=== PATIENT | male | born 2000 | race Caucasian/White ===

== ENCOUNTER 2018-04-14 13:17 | Emergency (ER) | payer OTHER ==
[2018-04-14] MEDS ORDERED: HYDROcod/ACETAM 5/325 MG TABLET PO STA (14:38)
[2018-04-14] MEDS ORDERED: ONDANSETRON ODT 4 MG TABLET TL STA (14:38)
[2018-04-14] MEDS ORDERED: IBUPROFEN 600 MG TABLET PO STA (14:38)
--- NOTE | 2018-04-14 14:40 | ED Physician Documentation ---
PD HPI HEADACHE - Stated complaint Stated Complaint: LEE/ABD PX - Chief complaint Chief Complaint: Neuro - History obtained from History obtained from: Patient - History of Present Illness Timing - onset: Today (17-year-old gentleman who became ill today with stomach upset nausea preceding a gradual onset headache and dizziness. Denies cough. Has had some shortness of breath. Has not vomited, no diarrhea or recent travel. No fevers or chills. No sick contacts.) Review of Systems Constitutional: reports: Fatigue. denies: Fever, Chills Ears: denies: Ear pain, Drainage/discharge Nose: denies: Rhinorrhea / runny nose, Congestion Throat: denies: Sore throat Respiratory: reports: Dyspnea. denies: Cough GI: reports: Nausea. denies: Abdominal Pain, Vomiting, Diarrhea PD PAST MEDICAL HISTORY - Present Medications Home Medications: Ambulatory Orders Medication Instructions Recorded Confirmed Hydrocodone/Acetaminophen 1 - 2 each PO Q6H PRN #7 tablet 04/14/18 [Hydrocodon-Acetaminophen 5-325] Ibuprofen [Motrin] 800 mg PO Q8H PRN #30 tablet 04/14/18 Ondansetron Odt [Zofran] 4 mg TL Q6H PRN #10 tablet 04/14/18 - Allergies Allergies/Adverse Reactions: Allergies Allergy/AdvReac Type Severity Reaction Status Date / Time No Known Drug Allergies Allergy Verified 04/14/18 13:22 PD ED PE NORMAL - Vitals Vital signs reviewed: Yes - General General: Alert and oriented X 3, No acute distress - HEENT HEENT: PERRL, EOMI, Pharynx benign - Neck Neck: Supple, no meningeal sign, No bony TTP - Cardiac Cardiac: RRR, No murmur - Respiratory Respiratory: No respiratory distress, Clear bilaterally - Abdomen Abdomen: Non tender - Derm Derm: No rash - Neuro Neuro: Alert and oriented X 3, Normal speech - Psych Psych: Normal mood, Normal affect Results - Vitals Vitals: Vital Signs - 24 hr 04/14/18 13:21 Temperature 36.5 C Heart Rate 78 Respiratory 18 Rate Blood Pressure 134/70 H O2 Saturation 98 Oxygen O2 Source Room air - Rads (name of study) CT Head Radiology: EMP read contemporaneously (normal) PD MEDICAL DECISION MAKING - ED course ED course: 17-year-old with kind of odd symptoms of nausea without vomiting, stomach upset, headache and body aches. Seems most likely to be viral. The headache was predominance but I became less concerned as he became more and more focused on his work note. - Sepsis Event Vital Signs: Vital Signs - 24 hr 04/14/18 13:21 Temperature 36.5 C Heart Rate 78 Respiratory 18 Rate Blood Pressure 134/70 H O2 Saturation 98 Oxygen O2 Source Room air Departure - Departure Disposition: Home, Self Care Clinical Impression: Viral syndrome Condition: Good Record reviewed to determine appropriate education?: Yes Instructions: ED Viral Syndrome Prescriptions: Hydrocodone/Acetaminophen [Hydrocodon-Acetaminophen 5-325] 1 - 2 each PO Q6H PRN #7 tablet PRN Reason: pain Ibuprofen [Motrin] 800 mg PO Q8H PRN #30 tablet PRN Reason: PAIN &/OR FEVER Ondansetron Odt [Zofran] 4 mg TL Q6H PRN #10 tablet PRN Reason: Nausea / Vomiting Comments: Call your doctor to arrange a follow-up appointment, make the next available appointment. In the interim, return anytime if worse or if new symptoms develop. Your blood pressure was elevated today on check into the emergency department. This does not mean that you have hypertension, it is a common phenomenon to come to the emergency department and have elevated blood pressure. I recommend that you see your primary care physician within the week to have it rechecked when you are feeling better. Forms: Activity restrictions
[2018-04-14 14:57] LABS: BASOPHILS % (AUTO) 0.3 %; EOSINOPHILS # (AUTO) 0.1 10^3/uL (0.0-0.7); EOSINOPHILS % (AUTO) 1.7 %; HGB - HEMOGLOBIN 14.9 g/dL (14.0-18.0); LYMPHOCYTES # (AUTO) 1.9 10^3/uL (1.5-3.5); LYMPHOCYTES % (AUTO) 24.9 %; MEAN CORPUSCULAR HEMOGLOBIN 31.4 pg (27.0-31.0); MEAN CORPUSCULAR HGB CONC 34.4 g/dL (32.0-36.0); MEAN CORPUSCULAR VOLUME 91.2 fL (80.0-94.0); MEAN PLATELET VOLUME 8.6 fL (7.4-11.4); MONOCYTES # (AUTO) 0.5 10^3/uL (0.0-1.0); MONOCYTES % (AUTO) 7.1 %; PLT - PLATELET COUNT 248 10^3/uL (130-450); RED BLOOD COUNT 4.73 10^6/uL (4.70-6.10); RED CELL DISTRIBUTION WIDTH 12.8 % (12.0-15.0); WHITE BLOOD COUNT 7.5 x10^3/uL (4.8-10.8)
[2018-04-14 15:06] LABS: ALBUMIN 4.3 g/dL (3.2-5.5); ALBUMIN/GLOBULIN RATIO 1.4 (1.0-2.2); BILIRUBIN,TOTAL 0.8 mg/dL (0.2-1.0); CALCIUM 9.1 mg/dL (8.5-10.3); CREATININE 0.9 mg/dL (0.6-1.2); TOTAL PROTEIN 7.4 g/dL (6.7-8.2)
--- NOTE | 2018-04-14 15:09 | CT Report ---
Reason: LEE Procedure Date: 04/14/2018 Accession Number: [id number] / [id number] Procedure: CT - Head W/O CPT Code: FULL RESULT: EXAM: CT HEAD EXAM DATE: 04/14/2018 02:53 PM. CLINICAL HISTORY: Headache since this morning. COMPARISON: None. TECHNIQUE: Multiaxial CT images were obtained from the foramen magnum to the vertex. Reformats: Sagittal and coronal. IV contrast: None. In accordance with CT protocol optimization, one or more of the following dose reduction techniques were utilized for this exam: automated exposure control, adjustment of mA and/or KV based on patient size, or use of iterative reconstructive technique. FINDINGS: Parenchyma: No intraparenchymal hemorrhage. No evidence of mass, midline shift, or CT findings of infarction. Driver-white differentiation is distinct. Extraaxial Spaces: Normal for age. No subdural or epidural collections identified. Ventricles: Normal in size and position. Sinuses and Orbits: Imaged paranasal sinuses, orbits, and mastoids show no significant abnormality. Bones: No evidence of fracture or calvarial defect. Other: None. IMPRESSION: Normal head CT. RADIA
[2018-04-14 15:33] VITALS: BP 118/68
== END 2018-04-14 15:33 | disposition home or self-care (01) ==
LOC: ED 13:17
DX: B34.9 Viral infection, unspecified (principal); R03.0 Elevated blood-pressure reading, without diagnosis of hypertension; R11.0 Nausea
CPT/HCPCS: 36415; 70450; 80053; 83690; 85025; 99283; A9270; Q0162

== ENCOUNTER 2018-04-16 18:13 | Emergency (ER) | payer OTHER ==
--- NOTE | 2018-04-16 20:10 | ED Physician Documentation ---
PD HPI HEAD INJURY - Stated complaint Stated Complaint: SOA/LEE/NAUSEA - Chief complaint Chief Complaint: Heent - History obtained from History obtained from: Patient - History of Present Illness Mechanism of head injury: Fell, Blow (he does not remember the details too well, but today is having memory of having fell and then awakening on ground feeling dazed. This was 2 days ago. Seen in ER yesterday with nausea, sleepy, and headache but did not remember the injury at that time. Evaluation for likely viral illness.) Where head injury occurred: [place] Timing - onset: How many days ago (2) Location of injury: Back Quality of pain: Aching Associated symptoms: LOC, AMS, Nausea / vomiting Contributing factors: No: Anticoagulated Similar symptoms before: Has not had sx before Recently seen: Emergency Dept (yesterday) Review of Systems Constitutional: denies: Fever, Chills, Myalgias Nose: denies: Rhinorrhea / runny nose, Congestion Throat: denies: Sore throat Respiratory: denies: Cough GI: reports: Nausea, Vomiting Neurologic: reports: Confused, Headache, Head injury. denies: Focal weakness, Numbness PD PAST MEDICAL HISTORY - Past Medical History Cardiovascular: None Respiratory: None Neuro: None Endocrine/Autoimmune: None - Present Medications Home Medications: Ambulatory Orders Medication Instructions Recorded Confirmed Hydrocodone/Acetaminophen 1 - 2 each PO Q6H PRN #7 tablet 04/14/18 [Hydrocodon-Acetaminophen 5-325] Ibuprofen [Motrin] 800 mg PO Q8H PRN #30 tablet 04/14/18 Ondansetron Odt [Zofran] 4 mg TL Q6H PRN #10 tablet 04/14/18 Dexamethasone [Decadron] 4 mg PO DAILY #5 tablet 04/16/18 HYDROcod/ACETAM 5/325 [Alva 5/325] 1 tab PO Q6H PRN #10 tablet 04/16/18 Ondansetron Odt [Zofran] 4 mg TL Q6H PRN #15 tablet 04/16/18 - Allergies Allergies/Adverse Reactions: Allergies Allergy/AdvReac Type Severity Reaction Status Date / Time No Known Drug Allergies Allergy Verified 04/16/18 18:29 - Social History Does the pt smoke?: No Smoking Status: Never smoker Does the pt drink ETOH?: No Does the pt have substance abuse?: No - Immunizations Immunizations are current?: Yes PD ED PE NORMAL - Vitals Vital signs reviewed: Yes - General General: Alert and oriented X 3, No acute distress, Well developed/nourished - HEENT HEENT: PERRL, EOMI (no nystagmus), Moist mucous membranes, Pharynx benign, Other (mild tenderness back of head without swelling. ) - Neck Neck: Supple, no meningeal sign, No adenopathy - Cardiac Cardiac: RRR, No murmur - Respiratory Respiratory: Clear bilaterally - Abdomen Abdomen: Soft, Non tender - Derm Derm: Normal color, Warm and dry Results - Vitals Vitals: Vital Signs - 24 hr 04/16/18 18:24 Temperature 36.8 C Heart Rate 62 Respiratory 18 Rate Blood Pressure 143/87 H O2 Saturation 100 Oxygen O2 Source Room air PD MEDICAL DECISION MAKING - ED course Complexity details: reviewed old records, reviewed results, considered differential (here for nausea, vomiting, headache and some confusion yesterday and is improved today, but still headache and some slow mentation/processing. He now remembers that he had fallen and hit head the day prior (Thu) and so is feeling the symptoms may be concussive. The symptoms would fit for concussive reasonably. ), d/w patient Departure - Departure Disposition: 01 Home, Self Care Clinical Impression: Post-concussion syndrome Condition: Stable Record reviewed to determine appropriate education?: Yes Instructions: ED Concussion Follow-Up: [facility] [Provider Group] Prescriptions: Dexamethasone [Decadron] 4 mg PO DAILY #5 tablet HYDROcod/ACETAM 5/325 [Alva 5/325] 1 tab PO Q6H PRN #10 tablet PRN Reason: Pain Ondansetron Odt [Zofran] 4 mg TL Q6H PRN #15 tablet PRN Reason: Nausea / Vomiting Comments: Drink lots of fluids. Light activity is okay. Nothing exertional visually or physically for couple more days. Given the remembrance now of hitting her head, the symptoms to fit well for postconcussive syndrome. Typically this will last for several days and improved. Recheck with your primary care this coming week Thursday or Thursday if not tolerant of normal activity. Continue some ibuprofen. You can use Decadron steroid for inflammation as well to help with the concus sive symptoms. Ondansetron if needed for nausea. Add Tylenol or hydrocodone if needed for pain. Forms: Activity restrictions Discharge Date/Time: 04/16/18 21:02
[2018-04-16] MEDS ORDERED: HYDROcod/ACET 5/325 Prepack 4 PO STA (20:35)
[2018-04-16] MEDS ORDERED: DEXAMETHASONE 10 MG/ML VIAL PO STA (20:35)
[2018-04-16] MEDS ORDERED: HYDROcod/ACETAM 5/325 MG TABLET PO STA (20:35)
[2018-04-16] MEDS ORDERED: ONDANSETRON ODT 4 MG TABLET TL STA (20:35)
[2018-04-16] MEDS: ONDANSETRON ODT 4 MG Prepack 2 TL PRN ×2 (20:46→20:47)
[2018-04-16 21:02] VITALS: BP 141/83
== END 2018-04-16 21:02 | disposition home or self-care (01) ==
LOC: ED 18:13
DX: F07.81 Postconcussional syndrome (principal); Z91.81 History of falling
CPT/HCPCS: 99283; A9270; Q0162

== ENCOUNTER 2020-07-24 16:52 | Emergency (ER) | payer OTHER ==
[2020-07-24 17:00] VITALS: BP 139/78
[2020-07-24] MEDS ORDERED: BUFFERED LIDOCAINE 10 ML SYRINGE SUBQ STA (17:15)
[2020-07-24] MEDS ORDERED: BACITRACIN ZINC OINT 1 PACKET TOP STA (17:32)
--- NOTE | 2020-07-24 17:33 | ED Physician Documentation ---
History of Present Illness - Stated complaint Stated Complaint: RT THUMB LAC - Chief complaint Chief Complaint: Laceration - Additonal information Additional information: 19-year-old male presents emergency department for evaluation of a laceration on the dorsal aspect of his right thumb over MCP joint. Sustained when working on one of the jets at [employer]. Tetanus is up-to-date. Patient is right- handed. Normal flexion extension at all joints against resistance. Patient is right-hand dominant Review of Systems Constitutional: reports: Reviewed and negative Ears: reports: Reviewed and negative Nose: reports: Reviewed and negative Throat: reports: Reviewed and negative Cardiac: reports: Reviewed and negative Respiratory: reports: Reviewed and negative GI: reports: Reviewed and negative : reports: Reviewed and negative Skin: reports: Laceration (s) (right thumb) PD PAST MEDICAL HISTORY - Past Medical History Past Medical History: No Cardiovascular: None Respiratory: None Neuro: None Endocrine/Autoimmune: None - Past Surgical History Past Surgical History: No - Present Medications Home Medications: Ambulatory Orders Medication Instructions Recorded Confirmed Dextroamphetamine/Amphetamine 1 tab PO DAILY 07/24/20 07/24/20 [Adderall 20 mg Tablet] - Allergies Allergies/Adverse Reactions: Allergies Allergy/AdvReac Type Severity Reaction Status Date / Time No Known Drug Allergies Allergy Verified 07/24/20 17:00 - Social History Does the pt smoke?: No Smoking Status: Never smoker Does the pt drink ETOH?: No Does the pt have substance abuse?: No - Immunizations Immunizations are current?: Yes - POLST Patient has POLST: No PD ED PE EXPANDED - Extremities Extremities: Right finger(s) (Meter vertical laceration over the MCP joint of right thumb. Preserved flexion extension at all joints against resistance. CMS T preserved.) Results - Vitals Vitals: Vital Signs - 24 hr 07/24/20 16:57 Temperature 36.1 C L Heart Rate 82 Respiratory 16 Rate Blood Pressure 139/78 H O2 Saturation 99 Oxygen O2 Source Room air Procedures - Laceration (location) right thumb Length in cm: 1 Wound type: Linear Neurovascular status: Sensory intact, Motor intact Tendon involvement: Tendon intact Anesthesia: Lidocaine 1% Wound preparation: Chlorhexadine, Irrigated copiously NS Skin layer closure: Interrupted, Size #-0 - enter number (4), Sutures - enter # (2) Other: Patient tolerated well, No complications, Tetanus UTD PD MEDICAL DECISION MAKING - ED course Complexity details: reviewed results, re-evaluated patient, d/w patient ED course: 19-year-old male here with a 1 cm vertical and laceration over the MCP joint of the right thumb. This was sustained while working on one of the jets at the [employer]. Wound is quite clean. However given the approximation over the joint without findings of joint space involvement we elected to close the wound with 2 sutures. Tetanus is up-to-date. Routine wound care and emergent return precautions discussed Departure - Departure Disposition: 01 Home, Self Care Clinical Impression: Thumb laceration Qualifiers: Encounter type: initial encounter Damage to nail status: without damage Foreign body presence: without foreign body Laterality: right Qualified Code(s): S61.011A - Laceration without foreign body of right thumb without damage to nail, initial encounter Instructions: ED Laceration Hand Comments: Your suture should be removed in 7 to 10 days. In 24 hours you may remove the dressing wash gently with warm soap and water, apply any antibiotic ointment and a simple bandage. Your tetanus is up-to-date. Please attempt to keep your wound clean and dry. Do not submerge it in dirty dishwater or bath water. Return to the emergency department if you have any concerns of infection such as redness, fevers milky drainage increased pain.
== END 2020-07-24 18:04 | disposition home or self-care (01) ==
LOC: ED 16:52
DX: S61.011A Laceration without foreign body of right thumb without damage to nail, initial encounter (principal); W26.8XXA Contact with other sharp object(s), not elsewhere classified, initial encounter; Y93.89 Activity, other specified; Y92.138 Other place on military base as the place of occurrence of the external cause; Y99.0 Civilian activity done for income or pay
CPT/HCPCS: 12001; 99281; 99282

== ENCOUNTER 2023-04-25 18:15 | Emergency (ER) | payer OTHER ==
[2023-04-25 18:27] VITALS: BP 132/88; O2SAT 97
[2023-04-25] MEDS ORDERED: KETOROLAC 30 MG/ML VIAL IM STA (18:56)
--- NOTE | 2023-04-25 19:02 | ED Physician Documentation ---
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 He states he has been dealing with this for the last several months, he has seen [facility] physician who stated that he had sciatica and had him on naproxen and lidocaine patches. He then was on vacation for the last week or so and was advised that if he had ongoing symptoms to be seen before he returned to duty and given he still has symptoms he came into the ER today. He denies any new injuries, no lifting twisting. Pain generally worse when he sits for prolonged periods of time. He is on his feet quite a bit at work, does do some lifting though they have machines to lift heavier items. He denies any new trauma to the area. He does have tingling sometimes numbness in the lower leg, no foot drop, no bowel or bladder changes, no saddle anesthesia. No history of IV drug use or fever. He states he has been referred to physical therapy but they have not arranged an appointment yet. PD PAST MEDICAL HISTORY - Past Medical History Past Medical History: Yes Cardiovascular: None Respiratory: None Neuro: None Endocrine/Autoimmune: None GI: None : None HEENT: None Psych: ADD/ADHD Musculoskeletal: None Derm: None - Past Surgical History Past Surgical History: No - Present Medications Home Medications: Ambulatory Orders Medication Instructions Recorded Confirmed Dextroamphetamine/Amphetamine 20 mg PO DAILY 07/24/20 04/25/23 [Adderall 20 mg Tablet] Gabapentin [Neurontin] 300 mg PO HS #30 cap 04/25/23 Naproxen 500 mg PO BID PRN 04/25/23 04/25/23 predniSONE [Deltasone] 10 mg PO [id number] #42 tab 04/25/23 traZODone [Desyrel] 25 mg PO HS 04/25/23 04/25/23 - Allergies Allergies/Adverse Reactions: Allergies Allergy/AdvReac Type Severity Reaction Status Date / Time No Known Drug Allergies Allergy Verified 04/25/23 18:21 - Social History Does the pt smoke?: No Smoking Status: Never smoker Does the pt drink ETOH?: Yes Does the pt have substance abuse?: No - Immunizations Immunizations are current?: Yes - POLST Patient has POLST: No PD ED PE NORMAL - Vitals Vital signs reviewed: Yes - General General: Alert and oriented X 3, No acute distress, Well developed/nourished - HEENT HEENT: Atraumatic, Moist mucous membranes - Cardiac Cardiac: RRR, No murmur - Respiratory Respiratory: No respiratory distress, Clear bilaterally - Back Back: No CVA TTP, Other (Left lower lumbar paravertebral muscle tenderness) - Derm Derm: Normal color, Warm and dry, No rash - Extremities Extremities: No deformity, No tenderness to palpate, Normal ROM s pain, No edema, Other (. Normal sensation and range of motion of the lower extremities.) Results - Vitals Vitals: Vital Signs - 24 hr 04/25/23 18:21 Temperature 37.3 C Heart Rate 78 Respiratory 18 Rate Blood Pressure 132/88 H O2 Saturation 97 Oxygen O2 Source Room air PD Medical Decision Making - ED course Complexity details: considered differential, d/w patient ED course: 22-year-old male presents with left lower back pain rating into the left leg as described in HPI. The patient has been diagnosed with sciatica or lumbar radiculopathy and is on naproxen without relief in his symptoms. He has no saddle anesthesia, no bowel or bladder changes, no fever or chills. Low suspicion for cauda equina or epidural abscess or osteomyelitis at this time. This is likely sciatic pain and I have advised the patient that he will need to continue supportive measures, and I recommend that he get into physical therapy as soon as possible. He may need an outpatient MRI but this does not need to be done emergently today. I will give him a short course of steroids as this may improve some of his symptoms though advised also has potential side effects which we discussed. I also started him on gabapentin which she can take before bed and then follow-up with his primary [place] physician to determine if this would be helpful for him during the day as well. Patient to call Thursday to establish physical therapy and follow-up with his [place] doctor. Return precautions reviewed if new or worsening symptoms. Departure - Departure Disposition: Home, Self Care Clinical Impression: Sciatica Qualifiers: Laterality: left Qualified Code(s): M54.32 - Sciatica, left side Condition: Good Instructions: ED Sciatica Prescriptions: predniSONE [Deltasone] 10 mg PO [id number] #42 tab Gabapentin [Neurontin] 300 mg PO HS #30 cap Comments: Please continue follow-up with your [place] physician for your sciatica. You will need to get involved with physical therapy and continue the anti-inflammatories and Tylenol as needed. I have also prescribed gabapentin for you to take before bed, this can be increased to several times a day but I would like you to follow-up with your primary doctor first who can adjust your medication as needed. Forms: Activity restrictions
== END 2023-04-25 19:14 | disposition home or self-care (01) ==
LOC: ED 18:15
DX: M54.32 Sciatica, left side (principal)
CPT/HCPCS: 96372; 99283

== ENCOUNTER 2023-05-14 14:12 | Outpatient (CLI) | payer OTHER ==
--- NOTE | 2023-05-14 15:41 | MRI Report ---
PROCEDURE: LUMBAR SPINE WO INDICATIONS: LOW BACK PAIN TECHNIQUE: Noncontrast sagittal T1 spin echo and T2 fast echo, sagittal STIR, axial T1 and T2 fast spin echo thr ough the lumbar spine. In cases with scoliosis, additional coronal T2 fast spin echo may be performe d. COMPARISON: None. FINDINGS: Image quality: Excellent. Alignment and Curvature: Bilateral L5 pars defects. Grade 1 anterolisthesis of L5 on S1 measures 6 mm . The other vertebral bodies are normally aligned. Bone Marrow: Marrow is of normal overall signal. No acute vertebral body compression fractures. Spinal Cord: Conus medullaris terminates at the T12 level. Visualized cord demonstrates normal sign al and size. Paraspinous Soft Tissues: No paravertebral masses. T12-L1: Normal in appearance. L1-L2: Normal in appearance. L2-L3: Normal in appearance. L3-L4: Normal in appearance. L4-L5: Normal in appearance. L5-S1: Bilateral L5 pars defects. Mild anterolisthesis of L5 on S1. Posterior disc bulge. No canal stenosis. Moderate right foraminal narrowing with flattening deformity on the exiting right L5 nerve root. IMPRESSION: 1. Bilateral L5 pars defects with a 6 mm anterolisthesis of L5 on S1. There is no canal stenosis. The re is moderate right foraminal narrowing. Reviewed by: Faustino Palafox MD on 05/14/2023 3:40 PM PST Approved by: Faustino Palafox MD on 05/14/2023 3:40 PM PST Station ID: [id number]
== END 2023-05-14 14:13 | disposition home or self-care (01) ==
LOC: DI 14:12
DX: M43.17 Spondylolisthesis, lumbosacral region (principal); M48.07 Spinal stenosis, lumbosacral region

== ENCOUNTER 2023-10-22 15:00 | Outpatient (CLI) | payer OTHER ==
--- NOTE | 2023-10-22 23:40 | XRAY Report ---
PROCEDURE: Chest 2V INDICATIONS: ACUTE COUGH TECHNIQUE: 2 views of the chest were acquired. COMPARISON: None. FINDINGS: Surgical changes and devices: None. Lungs and pleura: No pleural effusions or pneumothorax. Lungs are clear. Mediastinum: Mediastinal contours appear normal. Heart size is normal. Bones and chest wall: No suspicious bony lesions. Overlying soft tissues appear unremarkable. IMPRESSION: No acute cardiopulmonary process. Reviewed by: Zach Cerda MD on 10/22/2023 11:38 PM PDT Approved by: Zach Cerda MD on 10/22/2023 11:38 PM PDT Station ID: [id number]
== END 2023-10-22 15:15 | disposition home or self-care (01) ==
LOC: DI.N 15:00
PROVIDERS: ATTEND Family Medicine
DX: R05.1 Acute cough (principal)